=== PATIENT | male | born 1980 | race Two or more races ===

== ENCOUNTER 2021-10-05 09:51 | Emergency (ER) | payer OTHER ==
[~2021-10-05] VITALS: Ht 180.3 cm; Wt 174.6 kg
--- NOTE | 2021-10-05 10:04 | NUR ---
DR BARILLAS AT BEDSIDE FOR EVAL
--- NOTE | 2021-10-05 10:14 | NUR ---
BARON CRUMP AT BEDSIDE FOR EKG
--- NOTE | 2021-10-05 10:21 | NUR ---
JOSE CRUMP AT BEDSIDE
[2021-10-05] MEDS ORDERED: ASPIRIN 81 MG TAB.CHEW ONE (10:25)
[2021-10-05] MEDS: ASPIRIN 81 MG TAB.CHEW PO ONE (10:32)
[2021-10-05] MEDS ORDERED: IPRA4AER IH (10:41)
[2021-10-05 10:59] LABS: CALCIUM, SERUM 8.5 mg/dL (8.5-10.1); CARBON DIOXIDE 27 mmol/L (21-32); CHLORIDE 102 mmol/L (98-107); CREATININE 0.9 mg/dL (0.6-1.3); GLUCOSE 99 mg/dL (74-106); POTASSIUM 4.1 mmol/L (3.5-5.1); SODIUM SERUM 135 mmol/L (136-145); UREA NITROGEN, BLOOD 12 mg/dL (7-18)
[2021-10-05 11:06] LABS: BASOPHILS # (AUTO) 0.1 K/uL (0.0-0.2); BASOPHILS % (AUTO) 0.8 % (0.0-2.0); EOSINOPHILS % (AUTO) 3.1 % (0.0-6.0); HEMATOCRIT 41 % (39-51); HEMOGLOBIN 13.3 g/dL (13.5-17.5); LYMPHOCYTES # (AUTO) 1.6 K/uL (0.8-4.8); LYMPHOCYTES % (AUTO) 16.1 % (20.0-44.0); MEAN CORPUSCULAR HGB CONC 33 g/dl (31.0-36.0); MEAN CORPUSCULAR VOLUME 83 fL (80-96); MONOCYTES # (AUTO) 0.5 K/uL (0.1-1.30); MONOCYTES % (AUTO) 5.2 % (2.0-12.0); NEUTROPHILS # (AUTO) 7.6 K/uL (1.8-8.9); NEUTROPHILS % (AUTO) 74.8 % (43.0-81.0); PLATELET COUNT (AUTO) 355 K/uL (150-450); RED BLOOD CELL COUNT(AUTO) 4.89 MIL/uL (4.5-6.0); WHITE BLOOD COUNT (AUTO) 10.1 K/uL (4.3-11.0)
[2021-10-05 11:17] LABS: ALANINE AMINOTRANSFERASE 46 U/L (12-78); ALBUMIN 2.9 g/dL (3.4-5.0); ALKALINE PHOSPHATASE 102 U/L (46-116); ASPARTATE AMINOTRANSFERASE 29 U/L (15-37); BILIRUBIN,DIRECT 0.1 mg/dL (0.0-0.2); BILIRUBIN,TOTAL 0.4 mg/dL (0.2-1.0); TOTAL PROTEIN, SERUM 7.3 g/dL (6.4-8.2)
[2021-10-05 11:32] VITALS: BP 147/106
[2021-10-05] MEDS ORDERED: CLOT12CR TP (11:48)
[2021-10-05] MEDS ORDERED: FLUC100T8 PO (11:48)
--- NOTE | 2021-10-05 12:05 | NUR ---
Patient does not wish to proceed with medical care recommended by Dr. Denton. Patient given information related to possible complications, up to and including , which could occur as a result of leaving the hospital at this time. Patient verbalizes understanding of risks involved due to leaving against medical advice. Patient has signed AMA form.
== END 2021-10-05 12:04 | disposition left against medical advice (07) ==
LOC: ER 09:55
DX: R07.89 Other chest pain (principal); B35.4 Tinea corporis; R60.0 Localized edema; J45.909 Unspecified asthma, uncomplicated; Z88.8 Allergy status to other drugs, medicaments and biological substances
CPT/HCPCS: 36415; 71045-TC; 80048-TC; 80076-TC; 83605-TC; 84484-TC; 85025-TC; 87040-TC; 93970-TC

== ENCOUNTER 2021-10-09 23:08 | Emergency (ER) | payer OTHER ==
[~2021-10-09] VITALS: Ht 180.3 cm; Wt 174.6 kg
[~2021-10-09 23:08] MED LIST: CLOT12CR TP; FLUC100T8 PO; IPRA4AER IH
[2021-10-09 23:38] VITALS: BP 160/83
--- NOTE | 2021-10-09 23:40 | NUR ---
PT BIBSELF C/O CHEST PAIN THAT RADIATES TO THE LEFT ARM WHICH STARTED AT 10PM. PT IS AAO X 4, BREATHING EVEN AND UNLABORED. PT ATTACHED TO MONITOR AND PULSE OX. PT WAS SEEN AND EXAMINED BY DR NUR. WILL CONTINUE TO MONITOR PATIENT AND CARRY OUT MD ORDERS.
[2021-10-09] MEDS ORDERED: KETOROLAC TROMETHAMINE INJ 60 MG/2 ML VIAL IM ONE (23:59)
[2021-10-10] MEDS ORDERED: IBUPROFEN 400 MG TABLET PO ONE
[2021-10-10] MEDS: KETOROLAC TROMETHAMINE INJ 60 MG/2 ML VIAL IM ONE (00:07)
--- NOTE | 2021-10-10 00:20 | NUR ---
Patient discharged to home in stable condition. Written and verbal after care instructions given. Patient verbalizes understanding of instruction. Pt ambulatory with a steady gait
== END 2021-10-10 00:20 | disposition home or self-care (01) ==
LOC: ER 23:09
DX: R07.89 Other chest pain (principal); M79.602 Pain in left arm; J45.909 Unspecified asthma, uncomplicated; Z60.2 Problems related to living alone; Z91.048 Other nonmedicinal substance allergy status
CPT/HCPCS: 93005; 96372; 99283; J1885

== ENCOUNTER 2021-12-08 20:58 | Emergency (ER) | payer OTHER ==
[~2021-12-08] VITALS: Ht 180.3 cm; Wt 179.2 kg
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
[2021-12-09 00:50] VITALS: BP 155/80
--- NOTE | 2021-12-09 00:50 | NUR ---
Patient discharged to home in stable condition. Written and verbal after care instructions given. Patient verbalizes understanding of instruction.
--- NOTE | 2021-12-09 01:02 | NUR ---
PT ambulatory with a steady gait
== END 2021-12-09 01:02 | disposition home or self-care (01) ==
LOC: ER 21:08
DX: R07.89 Other chest pain (principal); R19.00 Intra-abdominal and pelvic swelling, mass and lump, unspecified site; J45.909 Unspecified asthma, uncomplicated; Z91.09 Other allergy status, other than to drugs and biological substances; Z79.51 Long term (current) use of inhaled steroids; Z79.899 Other long term (current) drug therapy; Z60.2 Problems related to living alone; V89.2XXA Person injured in unspecified motor-vehicle accident, traffic, initial encounter; Y93.89 Activity, other specified; Y92.89 Other specified places as the place of occurrence of the external cause; Y99.8 Other external cause status
CPT/HCPCS: 71045-TC; 76700-TC

== ENCOUNTER 2022-07-01 22:25 | Emergency (ER) | payer OTHER ==
[~2022-07-01] VITALS: Ht 180.3 cm; Wt 172.4 kg
--- NOTE | 2022-07-01 22:51 | NUR ---
PATIENT BIBFAMILY C/O FEELING DIZZY, SOB, AND HEART PAIN STARTED AROUND 8PM. PATIENT IS A/O X 4, RR EVEN AND UNLABORED, NO SOB NOTED. PATIENT TAKEN TO ER BED 10. PATIENT CONNECTED TO MONITORS.
--- NOTE | 2022-07-01 22:55 | NUR ---
20G RH ESTABLISHED. BLOOD DRAWN AND SENT TO LAB
[2022-07-01] MEDS ORDERED: ASPIRIN 325 MG TABLET PO ONE (23:00)
[2022-07-01 23:09] LABS: BASOPHILS # (AUTO) 0.1 K/uL (0.0-0.2); EOSINOPHILS % (AUTO) 2.2 % (0.0-6.0); HEMATOCRIT 43 % (39-51); HEMOGLOBIN 14.3 g/dL (13.5-17.5); LYMPHOCYTES # (AUTO) 2.4 K/uL (0.8-4.8); LYMPHOCYTES % (AUTO) 21.9 % (20.0-44.0); MEAN CORPUSCULAR HGB CONC 34 g/dl (31.0-36.0); MEAN CORPUSCULAR VOLUME 85 fL (80-96); MONOCYTES # (AUTO) 0.8 K/uL (0.1-1.30); MONOCYTES % (AUTO) 7.1 % (2.0-12.0); NEUTROPHILS # (AUTO) 7.5 K/uL (1.8-8.9); NEUTROPHILS % (AUTO) 67.8 % (43.0-81.0); PLATELET COUNT (AUTO) 319 K/uL (150-450); RED BLOOD CELL COUNT(AUTO) 5.04 MIL/uL (4.5-6.0)
[2022-07-01] MEDS ORDERED: ASPIRIN 325 MG TABLET ONE (23:14)
[2022-07-01 23:19] LABS: CALCIUM, SERUM 8.6 mg/dL (8.5-10.1); CARBON DIOXIDE 29 mmol/L (21-32); CHLORIDE 101 mmol/L (98-107); CREATININE 0.9 mg/dL (0.6-1.3); GLUCOSE 104 mg/dL (74-106); POTASSIUM 3.8 mmol/L (3.5-5.1); SODIUM SERUM 136 mmol/L (136-145); UREA NITROGEN, BLOOD 15 mg/dL (7-18)
[2022-07-02] MEDS ORDERED: NITROGLYCERIN 0.4 MG/TAB BOTTLE ONE (00:28)
[2022-07-02] MEDS ORDERED: NITROGLYCERIN 0.4 MG/TAB BOTTLE SL ONE (00:30)
--- NOTE | 2022-07-02 00:36 | NUR ---
LAB AT BEDSIDE
--- NOTE | 2022-07-02 00:37 | NUR ---
Miko menendez in [facility] [place] - 07/02/22 at 0037 by VIRGILIO blood work collected sent to lab
--- NOTE | 2022-07-02 00:37 | NUR ---
covid swab collected sent to lab
--- NOTE | 2022-07-02 01:32 | NUR ---
Patient discharged to home in stable condition. Written and verbal after care instructions given. Patient verbalizes understanding of instruction.IV removed. Catheter intact and site benign. Pressure and 4x4 applied to site. No bleeding noted. Pt ambulatory with a steady gait
[2022-07-02 01:33] VITALS: BP 143/95
== END 2022-07-02 01:34 | disposition home or self-care (01) ==
LOC: ER 22:35
DX: R07.9 Chest pain, unspecified (principal); I45.10 Unspecified right bundle-branch block; E66.01 Morbid (severe) obesity due to excess calories; Z68.43 Body mass index [BMI] 50.0-59.9, adult; J45.909 Unspecified asthma, uncomplicated
CPT/HCPCS: 99285; 71045; 93005; 85025; 80048; 36415 ×2; 84484 ×2; 87426; C9803

== ENCOUNTER 2022-07-09 01:22 | Emergency (ER) | payer OTHER ==
[~2022-07-09] VITALS: Ht 180.3 cm; Wt 172.4 kg
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
--- NOTE | 2022-07-09 01:34 | NUR ---
20G IV AT . BLOOD DRAWN AND SENT TO LAB
--- NOTE | 2022-07-09 01:43 | NUR ---
MELIZA COLLECTED AND SENT TO LAB
[2022-07-09 02:03] LABS: BASOPHILS % (AUTO) 0.2 % (0.0-2.0); EOSINOPHILS % (AUTO) 0.8 % (0.0-6.0); HEMATOCRIT 45 % (39-51); HEMOGLOBIN 14.8 g/dL (13.5-17.5); LYMPHOCYTES # (AUTO) 1.2 K/uL (0.8-4.8); LYMPHOCYTES % (AUTO) 6.1 % (20.0-44.0); MEAN CORPUSCULAR HGB CONC 33 g/dl (31.0-36.0); MEAN CORPUSCULAR VOLUME 86 fL (80-96); MONOCYTES # (AUTO) 0.6 K/uL (0.1-1.30); MONOCYTES % (AUTO) 3.2 % (2.0-12.0); NEUTROPHILS # (AUTO) 17.4 K/uL (1.8-8.9); NEUTROPHILS % (AUTO) 89.7 % (43.0-81.0); PLATELET COUNT (AUTO) 364 K/uL (150-450); RED BLOOD CELL COUNT(AUTO) 5.27 MIL/uL (4.5-6.0); WHITE BLOOD COUNT (AUTO) 19.4 K/uL (4.3-11.0)
[2022-07-09 02:13] LABS: CALCIUM, SERUM 9.1 mg/dL (8.5-10.1); CARBON DIOXIDE 34 mmol/L (21-32); CHLORIDE 102 mmol/L (98-107); GLUCOSE 92 mg/dL (74-106); POTASSIUM 3.6 mmol/L (3.5-5.1); SODIUM SERUM 139 mmol/L (136-145); UREA NITROGEN, BLOOD 15 mg/dL (7-18)
[2022-07-09 02:19] LABS: D-DIMER 0.26 mg/L(FEU (0.17-0.50)
[2022-07-09 02:23] LABS: ALANINE AMINOTRANSFERASE 54 U/L (12-78); ALBUMIN 3.6 g/dL (3.4-5.0); ALKALINE PHOSPHATASE 98 U/L (46-116); ASPARTATE AMINOTRANSFERASE 23 U/L (15-37); BILIRUBIN,DIRECT 0.1 mg/dL (0.0-0.2); BILIRUBIN,TOTAL 0.4 mg/dL (0.2-1.0); TOTAL PROTEIN, SERUM 7.8 g/dL (6.4-8.2)
[2022-07-09] MEDS ORDERED: MORPHINE SULFATE INJ 4 MG/ML DISP.SYRIN ONE (03:37)
[2022-07-09] MEDS ORDERED: hydrALAZINE HCL IV 20 MG VIAL ONE (03:37)
[2022-07-09] MEDS ORDERED: hydrALAZINE HCL IV 20 MG VIAL IV ONE (04:00)
[2022-07-09] MEDS ORDERED: MORPHINE SULFATE INJ 2 MG/ML DISP.SYRIN IV ONE (04:00)
[2022-07-09] MEDS ORDERED: SULF1TAB48 PO (05:45)
[2022-07-09] MEDS ORDERED: CEPH500T PO (05:45)
[2022-07-09] MEDS ORDERED: SULFAMETH/TRIMETH 800/160 MG 1 UDTAB TABLET ONE (05:53)
[2022-07-09] MEDS ORDERED: CEPHALEXIN MONOHYDRATE 500 MG CAPSULE PO ONE ×2 (05:53→06:00)
[2022-07-09] MEDS ORDERED: SULFAMETH/TRIMETH 800/160 MG 1 UDTAB TABLET PO ONE (06:00)
--- NOTE | 2022-07-09 06:10 | NUR ---
Patient discharged to home in stable condition. Written and verbal after care instructions given. Patient verbalizes understanding of instruction.
--- NOTE | 2022-07-09 06:10 | NUR ---
IV removed. Catheter intact and site benign. Pressure and 4x4 applied to site. No bleeding noted.
[2022-07-09 06:37] VITALS: BP 118/74
== END 2022-07-09 06:37 | disposition home or self-care (01) ==
LOC: ER 01:27
DX: R07.2 Precordial pain (principal); E66.01 Morbid (severe) obesity due to excess calories; Z68.43 Body mass index [BMI] 50.0-59.9, adult; L03.90 Cellulitis, unspecified; J45.909 Unspecified asthma, uncomplicated; E78.5 Hyperlipidemia, unspecified; Z88.8 Allergy status to other drugs, medicaments and biological substances; Z60.2 Problems related to living alone
CPT/HCPCS: 99285; 96374; 71045; 96375; 93005; 85025; 80048; 80076; 85378; 36415; 84484 ×2; 85730; 83880; J0360; J2270